=== PATIENT | male | born 1970 | race Caucasian/White ===

== ENCOUNTER → 2022-11-27 | Outpatient (CLI) | payer MEDICAID ==
--- NOTE | 2022-11-27 08:36 | CTL ---
EXAMINATION TYPE: CT Low Dose Lung DATE OF EXAM ORDERED: 11/27/2022 HISTORY: 52-year-old male personal history of tobacco use, 30 pack-year history, former smoker. Lung cancer screening CT DLP: 106.[address] CTDI: 2.7 mGy Automated exposure control for dose reduction was used. SCREENING VISIT: Baseline COMPARISON: None TECHNIQUE: Low dose computed tomography scan was performed through the chest with coronal and sagitta l reconstructions. CT DIAGNOSTIC QUALITY: Satisfactory FINDINGS: The heart is normal size without pericardial effusion. Aortic root borderline ectatic at 3.5 cm. Conventional arch vessel branching anatomy. No thoracic lymphadenopathy by CT size criteria. There is moderate paraseptal and centrilobular emphysema especially in the upper and midlungs. A solitary 3 mm pulmonary nodule is noted along the lateral right upper lobe. Biapical pleural-parenc hymal scarring. No consolidation or pleural effusion. No additional suspicious pulmonary nodules. Visualized upper abdomen shows mildly diminished attenuation of the hepatic parenchyma suggesting fat ty infiltration. Bones: Mild to moderate degenerative disc disease particularly at T8-T9. IMPRESSION: 1. Lung RADS 2, benign. Solitary 3 mm pulmonary nodule on baseline screening. 2. COPD with moderate emphysema. Continue with smoking cessation. 3. Incidental: Mild hepatic steatosis. CT LUNG RAD AND CT CHEST RECOMMENDATION: Lung-Rad 2 Benign Appearance or Behavior: Continue annual sc reening with LDCT in 12 months.
--- NOTE | 2022-11-27 09:17 | US ---
EXAMINATION TYPE: US abdomen complete DATE OF EXAM: 11/27/2022 COMPARISON: NONE CLINICAL HISTORY: 52-year-old male [id number]. Abnormal labs TECHNIQUE: Multiple sonographic images of the abdomen are obtained. FINDINGS: EXAM MEASUREMENTS: Liver Length: 16.8 cm Gallbladder Wall: 0.2 cm CBD: 0.3 cm Spleen: 11.9 cm Right Kidney: 12.8 x 5.5 x 5.8 cm Left Kidney: 12.8 x 4.4 x 4.7 cm Pancreas: Limited visualization of the pancreatic tail due to shadowing from bowel gas. Visualized p ortions show no gross surrounding. Liver: Increased echogenicity. No focal lesion. Gallbladder: wnl Evidence for sonographic Diamond's sign: neg CBD: wnl Spleen: wnl Right Kidney: No hydronephrosis or masses seen Left Kidney: No hydronephrosis or masses seen Upper IVC: wnl Abd Aorta: No AAA visualized at time of scan IMPRESSION: 1. At least moderate hepatic steatosis. Correlate with LFTs, lipid profile, and patient risk factors. 2. No gallstones or biliary ductal dilatation.
== END | disposition home or self-care (01) ==
LOC: RADCTMAIN 06:34
PROVIDERS: ATTEND Family Medicine
DX: Z12.2 Encounter for screening for malignant neoplasm of respiratory organs (principal); K76.0 Fatty (change of) liver, not elsewhere classified; R74.8 Abnormal levels of other serum enzymes; Z87.891 Personal history of nicotine dependence
CPT/HCPCS: 71271; 76700